=== PATIENT | female | born 2005 | race Caucasian/White ===

== ENCOUNTER 2025-06-23 13:50 | Emergency (ER) | payer BC, SELFPAY ==
[2025-06-23 15:07] LABS: #Basophils Less than 0.03 10x3/uL (0.0-0.2); #Eosinophils 0.11 10x3/uL (0.0-0.5); #Monocytes 0.49 10x3/uL (0.0-1.1); #Neutrophils 5.03 10x3/uL (1.5-8.4); %Basophils 0.3 % (0.0-2.0); %Eosinophils 1.4 % (0.0-6.0); %Lymphocytes 26.7 % (18.0-47.0); %Monocytes 6.3 % (0.0-10.0); %Neutrophils 65.0 % (40.0-75.0); Hematocrit 41.4 % (34.9-44.5); Hemoglobin 13.5 g/dL (12.0-15.5); Mean Corpuscular Hemoglobin 29.2 pg (27.0-33.0); Mean Corpuscular Volume 89.4 fL (81.6-98.3); Platelet Count 237 10x3/uL (150-450); Red Blood Cell (RBC) Count 4.63 10x6/uL (3.90-5.03); White Blood Cell (WBC) Count 7.74 10x3/uL (3.5-10.5)
[2025-06-23 15:30] LABS: BHCG - Serum Negative (NEGATIVE); Pregs Control Background? CLEAR/WHITE (CLR/WHITE); Pregs Control Bar Appear? YES (CONTROL BAR)
[2025-06-23 15:34] LABS: Troponin I Less than 0.010 ng/mL (< 0.028)
[2025-06-23 15:36] LABS: ALT (SGPT) 11 U/L (Less than 34); AST (SGOT) 16 U/L (11-34); Albumin 4.4 g/dL (3.1-4.5); Alkaline Phosphatase 47 U/L (40-110); Anion Gap 11 mmol/L (10-20); BUN (Urea Nitrogen) 14 mg/dL (7.0-18.7); Bilirubin, Total 0.3 mg/dL (0.3-1.2); Calc. Creatinine Clearance 0 mL/min (70-130); Calcium 9.3 mg/dL (7.8-10.44); Carbon Dioxide 29 mmol/L (22-29); Chloride 105 mmol/L (98-107); Globulin 3.1 g/dL (2.4-3.5); Glucose 92 mg/dL (70-105); Potassium 3.7 mmol/L (3.5-5.1); Sodium 141 mmol/L (136-145)
== END 2025-06-23 15:56 | disposition home or self-care (01) ==
LOC: CSHERS 13:50
DX: R07.9 Chest pain, unspecified (principal); R55 Syncope and collapse
CPT/HCPCS: 36415; 71046; 80053; 84484; 84703; 85025; 85379; 93005